=== PATIENT | male | born 1975 | race Caucasian/White ===

== ENCOUNTER 2020-03-11 00:20 | Observation (INO) | payer MEDICARE, OTHER ==
[2020-03-11] MEDS ORDERED: HYDROmorphone 1 MG/ML 1 ML SYRINGE IVP STA ×2 (01:10→02:47)
[2020-03-11] MEDS ORDERED: ONDANSETRON 4 MG/2 ML VIAL IVP STA (01:10)
[2020-03-11] MEDS: SODIUM CHLORIDE 0.9% 1,000 ML IV SCH ×3 (01:53→18:35)
[2020-03-11 02:38] LABS: Anisocytosis Slight; Basophils # (A) 0.1 k/uL (0-0.2); Basophils % (A) 1 %; Eosinophils # (A) 0.2 k/uL (0-0.7); Eosinophils % (A) 3 %; HCT 38.5 % (39.0-53.0); HGB 11.5 gm/dL (13.0-17.5); Hypochromasia Marked; Lymphocytes # (A) 1.8 k/uL (1.0-4.8); Lymphocytes % (A) 31 %; MCH 21.8 pg (25.0-35.0); MCV 72.8 fL (80.0-100.0); Mean Platelet Volume 7.3; Microcytosis Moderate; Monocytes # (A) 0.3 k/uL (0-1.0); Monocytes % (A) 6 %; Neutrophils # (A) 3.5 k/uL (1.3-7.7); Neutrophils % (A) 58 %; Platelet Count 341 k/uL (150-450); RBC 5.28 m/uL (4.30-5.90); RDW 16.8 % (11.5-15.5)
[2020-03-11] MEDS ORDERED: KETOROLAC 15 MG/ML 1 ML VIAL IVP STA (02:47)
[2020-03-11 02:52] LABS: ALT 16 U/L (4-49); AST 30 U/L (17-59); African American GFR (CKD) >90 (>60 ml/min/1.73 sqM); Albumin 3.7 g/dL (3.5-5.0); Alkaline Phosphatase 105 U/L (38-126); Anion Gap 7 mmol/L; Blood Urea Nitrogen 11 mg/dL (9-20); Calcium 9.1 mg/dL (8.4-10.2); Carbon Dioxide 26 mmol/L (22-30); Chloride 102 mmol/L (98-107); Glucose 101 mg/dL (74-99); Non-African American GFR(CKD) >90 (>60 ml/min/1.73 sqM); Potassium 3.8 mmol/L (3.5-5.1); Sodium 135 mmol/L (137-145); Total Bilirubin 0.3 mg/dL (0.2-1.3); Total Protein 6.9 g/dL (6.3-8.2)
[2020-03-11 02:59] LABS: Prothrombin Time 10.3 sec (9.0-12.0)
--- NOTE | 2020-03-11 03:07 | ED ---
Wound/Laceration HPI - General Chief Complaint: Wound/Laceration Stated Complaint: Wound care Time Seen by Provider: 03/11/20 00:43 Source: patient Mode of arrival: ambulatory - History of Present Illness Initial Comments: 44-year-old male patient presents to the emergency department today for wound evaluation. Patient has a chronic wound to the posterior scalp. Generally rece malathi care at [facility] in [place]. Patient states that approximately one year ago he had cyst removed from the right posterior scalp. Patient states that he subsequently developed MRSA infection and osteomyelitis. Patient states that he was admitted to [facility] about 1.5 months ago for sepsis r/t osteomyelitis and MRSA skin infection to his scalp. States that he was recen tly admitted to [facility] in [place], discharged last 02/29/20. He states that his infectious disease doctor is located at [facility]. He was discharged with home care. He is supposed to have a wound vac applied to the head wound, but the home nurse has been unable to get it to seal. He is receiving IV daptomycin. He comes in tonight because he believes the infection is spreading and he wants a new cryptographic center specialist and to be treated at a different hospital. He did go to [facility] this last , states they did not do anything for him. Patient states that the pain is spreading from his head, down into his shoulders and upper back. He states that his neck muscles are sore and he is having difficulty swallowing. He denies any fevers or chills. Denies nausea or vomiting. He does take oxycodone at home for pain control. Patient is very hyperverbal and seems anxious. Patient denies any recent rash, cough, shortness of breath, chest pain, abdominal pain, nausea, vomiting, diarrhea, constipation, numbness, tingling, dizziness, weakness, hematuria, dysuria, urinary urgency, urinary frequency, visual changes, or any other complaints. - Related Data Allergies Allergy/AdvReac Type Severity Reaction Status Date / Time No Known Allergies Allergy Verified 03/11/20 02:48 Review of Systems ROS Statement: Those systems with pertinent positive or pertinent negative responses have been documented in the HPI. ROS Other: All systems not noted in ROS Statement are negative. Past Medical History Past Medical History: Asthma, Hypertension History of Any Multi-Drug Resistant Organisms: MRSA Date of last positivie culture/infection: MRSA MDRO Source:: wound Past Surgical History: Hernia Repair Additional Past Surgical History / Comment(s): carpal tunnel Past Psychological History: Anxiety Smoking Status: Current every day smoker Past Alcohol Use History: None Reported Past Drug Use History: None Reported General Exam General appearance: alert, in no apparent distress, other (This is a well- developed, well-nourished adult male patient in no acute distress. Vital signs upon presentation are pulse 98, respirations 18, blood pressure 193/120, pulse ox 99% on room air.) Head exam: Present: other (There is large open wound/cavity noted to the posterior neck and scalp. There is presence of granulation tissue. No surro unding erythema. No drainage currently. ) Eye exam: Present: normal appearance, PERRL, EOMI. Absent: scleral icterus, conjunctival injection, periorbital swelling Respiratory exam: Present: normal lung sounds bilaterally. Absent: respiratory distress, wheezes, rales, rhonchi, stridor Cardiovascular Exam: Present: regular rate, normal rhythm, normal heart sounds. Absent: systolic murmur, diastolic murmur, rubs, gallop, clicks GI/Abdominal exam: Present: soft, normal bowel sounds. Absent: distended, tenderness, guarding, rebound, rigid Neurological exam: Present: alert, oriented X3, CN II-XII intact Psychiatric exam: Present: normal affect, normal mood Skin exam: Present: warm, dry, intact, normal color. Absent: rash Course Vital Signs 03/11/20 03/11/20 03/11/20 00:23 03:17 04:35 Temperature 98.1 F 97.9 F Pulse Rate 98 87 83 Respiratory 18 17 16 Rate Blood Pressure 193/120 149/106 156/118 O2 Sat by Pulse 99 99 99 Oximetry 03/11/20 05:00 Temperature Pulse Rate Respiratory 18 Rate Blood Pressure 148/111 O2 Sat by Pulse Oximetry Medical Decision Making - Medical Decision Making 44-year-old male patient presented to the emergency department today for a evalu ation of a chronic wound to the posterior scalp, he reported worsening pain to the neck and upper back. Denies fevers. He generally receives care at [facility] in [place]. Patient states that approximately one year ago he had cyst removed from the right posterior scalp. Patient states that he subsequently developed MRSA infection and osteomyelitis. Patient states that he was admitted to [facility] in [place] about 1.5 months ago for sepsis r/t osteomyelitis and MRSA skin infection to his scalp. States that he was recently admitted to [facility] in [place], discharged last . He states that his infectious disease doctor is located at [facility]. He was discharged with home care. He is supposed to have a wound vac applied to the head wound, but the home nurse has been unable to get it to seal. He is receiving IV daptomycin. I did request medical records from [facility], but have not yet received them. Labs here are unremarkable. CT was negative. The patient is unable to get his wound VAC to seal and does not have local wound care infectious disease. We'll admit for observation taken be evaluated by infectious disease and wound care. Patient is agreeable with this plan for - Lab Data Result diagrams: 03/11/20 02:18 03/11/20 02:18 Lab Results 03/11/20 03/11/20 03/11/20 Range/Units 02:18 02:18 02:18 WBC 6.0 (3.8-10.6) k/uL RBC 5.28 (4.30-5.90) m/uL Hgb 11.5 L (13.0-17.5) gm/dL Hct 38.5 L (39.0-53.0) % MCV 72.8 L (80.0-100.0) fL MCH 21.8 L (25.0-35.0) pg MCHC 30.0 L (31.0-37.0) g/dL RDW 16.8 H (11.5-15.5) % Plt Count 341 (150-450) k/uL Neutrophils % 58 % Lymphocytes % 31 % Monocytes % 6 % Eosinophils % 3 % Basophils % 1 % Neutrophils # 3.5 (1.3-7.7) k/uL Lymphocytes # 1.8 (1.0-4.8) k/uL Monocytes # 0.3 (0-1.0) k/uL Eosinophils # 0.2 (0-0.7) k/uL Basophils # 0.1 (0-0.2) k/uL Hypochromasia Marked Anisocytosis Slight Microcytosis Moderate PT 10.3 (9.0-12.0) sec INR 1.0 (<1.2) APTT 25.0 (22.0-30.0) sec Sodium (137-145) mmol/L Potassium (3.5-5.1) mmol/L Chloride (98-107) mmol/L Carbon Dioxide (22-30) mmol/L Anion Gap mmol/L BUN (9-20) mg/dL Creatinine (0.66-1.25) mg/dL Est GFR (CKD-EPI)AfAm (>60 ml/min/1.73 sqM) Est GFR (CKD-EPI)NonAf (>60 ml/min/1.73 sqM) Glucose (74-99) mg/dL Plasma Lactic Acid Lucas (0.7-2.0) mmol/L Calcium (8.4-10.2) mg/dL Total Bilirubin (0.2-1.3) mg/dL AST (17-59) U/L ALT (4-49) U/L Alkaline Phosphatase (38-126) U/L Total Protein (6.3-8.2) g/dL Albumin (3.5-5.0) g/dL Urine Color Yellow Urine Appearance Cloudy (Clear) Urine pH 6.0 (5.0-8.0) Ur Specific Crowder 1.027 (1.001-1.035) Urine Protein 2+ H (Negative) Urine Glucose (UA) Negative (Negative) Urine Ketones Trace H (Negative) Urine Blood Negative (Negative) Urine Nitrite Negative (Negative) Urine Bilirubin Negative (Negative) Urine Urobilinogen <2.0 (<2.0) mg/dL Ur Leukocyte Esterase Small H (Negative) Urine RBC 9 H (0-5) /hpf Urine WBC 6 H (0-5) /hpf Ur Squamous Epith Cells <1 (0-4) /hpf Urine Mucus Many H (None) /hpf Urine Sperm Many H (None) /hpf 03/11/20 03/11/20 Range/Units 02:18 02:18 WBC (3.8-10.6) k/uL RBC (4.30-5.90) m/uL Hgb (13.0-17.5) gm/dL Hct (39.0-53.0) % MCV (80.0-100.0) fL MCH (25.0-35.0) pg MCHC (31.0-37.0) g/dL RDW (11.5-15.5) % Plt Count (150-450) k/uL Neutrophils % % Lymphocytes % % Monocytes % % Eosinophils % % Basophils % % Neutrophils # (1.3-7.7) k/uL Lymphocytes # (1.0-4.8) k/uL Monocytes # (0-1.0) k/uL Eosinophils # (0-0.7) k/uL Basophils # (0-0.2) k/uL Hypochromasia Anisocytosis Microcytosis PT (9.0-12.0) sec INR (<1.2) APTT (22.0-30.0) sec Sodium 135 L (137-145) mmol/L Potassium 3.8 (3.5-5.1) mmol/L Chloride 102 (98-107) mmol/L Carbon Dioxide 26 (22-30) mmol/L Anion Gap 7 mmol/L BUN 11 (9-20) mg/dL Creatinine 0.72 (0.66-1.25) mg/dL Est GFR (CKD-EPI)AfAm >90 (>60 ml/min/1.73 sqM) Est GFR (CKD-EPI)NonAf >90 (>60 ml/min/1.73 sqM) Glucose 101 H (74-99) mg/dL Plasma Lactic Acid Lucas 0.6 L (0.7-2.0) mmol/L Calcium 9.1 (8.4-10.2) mg/dL Total Bilirubin 0.3 (0.2-1.3) mg/dL AST 30 (17-59) U/L ALT 16 (4-49) U/L Alkaline Phosphatase 105 (38-126) U/L Total Protein 6.9 (6.3-8.2) g/dL Albumin 3.7 (3.5-5.0) g/dL Urine Color Urine Appearance (Clear) Urine pH (5.0-8.0) Ur Specific Crowder (1.001-1.035) Urine Protein (Negative) Urine Glucose (UA) (Negative) Urine Ketones (Negative) Urine Blood (Negative) Urine Nitrite (Negative) Urine Bilirubin (Negative) Urine Urobilinogen (<2.0) mg/dL Ur Leukocyte Esterase (Negative) Urine RBC (0-5) /hpf Urine WBC (0-5) /hpf Ur Squamous Epith Cells (0-4) /hpf Urine Mucus (None) /hpf Urine Sperm (None) /hpf - Radiology Data Radiology results: report reviewed, image reviewed CT brain C-spine without contrast was obtained. Report was reviewed in its entirety. Impression by Dr. Angeles shows negative computed tomography scan of the brain. Negative computed tomography scan of the cervical spine. Disposition Clinical Impression: Scalp wound, Intractable pain Disposition: ADMITTED IP TO THIS [facility] Condition: Serious Decision to Admit Reason: Admit from EC Decision Date: 03/11/20 Decision Time: 03:53
[2020-03-11 03:34] LABS: Appearance,Urine Cloudy (Clear); Bilirubin,Urine Negative (Negative); Blood,Urine Negative (Negative); Color,Urine Yellow; Glucose,Urine (UA) Negative (Negative); Ketones,Urine Trace (Negative); Leukocyte Esterase,Urine Small (Negative); Mucus,Urine Many /hpf; Nitrite,Urine Negative (Negative); Protein,Urine 2+ (Negative); RBC,Urine 9 /hpf (0-5); Specific Gravity,Urine 1.027 (1.001-1.035); Sperm,Urine Many /hpf; Squamous Epithelial Cell,Urine <1 /hpf (0-4); Urobilinogen,Urine <2.0 mg/dL (<2.0); WBC,Urine 6 /hpf (0-5)
[2020-03-11] MEDS ORDERED: HYDROmorphone 1 MG/ML 1 ML SYRINGE IVP PRN (03:50)
[2020-03-11] MEDS ORDERED: NALOXONE 0.4 MG/ML 1 ML VIAL IV PRN (03:50)
[2020-03-11] MEDS ORDERED: cloNIDine HCL 0.1 MG TAB PO STA (04:41)
--- NOTE | 2020-03-11 04:51 | CT ---
EXAMINATION TYPE: CT brain cspine wo con DATE OF EXAM: 03/11/2020 COMPARISON: None HISTORY: Neck Pain, MRSA, Cellulitis Headache CT DLP: 1458.70 mGycm Automated exposure control for dose reduction was used. Ventricles and sulci appear normal. There is no mass effect nor midline shift. There is no sign of in tracranial hemorrhage. Calvarium is intact. Skull base is intact. There is no evidence of cerebral ed calvin. Cervical vertebra have normal alignment. Disc spaces are fairly normal. Posterior elements are intact . Prevertebral soft tissues appear normal. There is normal aeration of the mastoid sinuses. Occipital bone is intact. IMPRESSION: Negative CT scan of the brain. Negative CT scan cervical spine.
[2020-03-11] MEDS: KETOROLAC 15 MG/ML 1 ML VIAL IVP PRN ×2 (09:13→18:04)
[2020-03-11] MEDS ORDERED: ONDANSETRON 4 MG/2 ML VIAL IVP PRN (09:56)
[2020-03-11] MEDS ORDERED: rOPINIRole HCL 4 MG TABLET PO PRN (11:59)
[2020-03-11] MEDS: ALPRAZolam 1 MG TAB PO PRN ×2 (12:32→18:13)
[2020-03-11] MEDS ORDERED: HYDROmorphone 1 MG/ML 1 ML SYRINGE IVP ONE (12:34)
[2020-03-11] MEDS: HYDROmorphone 1 MG/ML 1 ML SYRINGE IVP PRN ×3 (12:36→20:47)
[2020-03-11] MEDS: OXcarbazepine 300 MG TAB PO SCH ×2 (13:09→20:39)
[2020-03-11] MEDS: VENLAFAXINE HCL ER 150 MG CAP PO SCH (13:09)
[2020-03-11] MEDS ORDERED: TEMAZEPAM 15 MG CAP PO PRN (14:19)
[2020-03-11] MEDS ORDERED: cloNIDine HCL 0.1 MG TAB PO PRN (14:19)
[2020-03-11] MEDS ORDERED: DAPTOmycin 500 MG VIAL IV SCH (14:30)
--- NOTE | 2020-03-11 14:35 | P.CONS ---
History of Present Illness - Reason for Consult Consult date: 03/11/20 Wound care - History of Present Illness This is a 44-year-old patient with a large nonhealing ulcer to the posterior neck and head. Patient states that the ulceration has been there for greater than a year. He was recently in [facility] where a wound VAC was to the area successfully. Patient was just discharged and his home care nurse was unable to apply the wound VAC. Patient has had multiple dressings including Santyl and absorptive Silver. Patient states that the absorptive silver and the area. Patient is concerned of swelling distal to the ulceration stating that this infection that needs to be removed. Patient also has a PICC line that he is receiving IV antibiotics. Through discussion with the patient he has driven from hospital to hospital including [facility], [place], and [facility] to find someone who will lanced the distal portion of the ulceration. Patient has been performing his own debridement at home to the ulceration. He states he is in chronic pain utilizing OxyContin to the site. Patient is difficult to follow during the interview interrupts conversations multiple times. He is unwilling to listen to interventions and demanding to have the wound treated how he feels that. Patient states that he lives in [place] but is willing to move here for wound care. Patient denies diabetes. Patient past medical history significant for asthma, hypertension, sepsis, MRSA, possible osteomyelitis. Patient is a current smoker Review of Systems Review Of Systems: Constitutional: No fever, no chills, no night sweats. No weight change. No weakness, fatigue or lethargy. No daytime sleepiness. Integumentary:reports wounds, no lesions. No rash or pruritus. No unusual bruising. No change in hair or nails. Past Medical History Past Medical History: Asthma, Hypertension Additional Past Medical History / Comment(s): SEPSIS, MRSA, chronic back pain History of Any Multi-Drug Resistant Organisms: MRSA Year Discovered:: MRSA MDRO Source:: wound Past Surgical History: Hernia Repair Additional Past Surgical History / Comment(s): carpal tunnel, MRSA 05/24 Past Anesthesia/Blood Transfusion Reactions: No Reported Reaction Past Psychological History: Anxiety, Bipolar Smoking Status: Current every day smoker Past Alcohol Use History: None Reported Past Drug Use History: None Reported Medications and Allergies Home Medications Medication Instructions Recorded Confirmed Type ALPRAZolam [Xanax] 2 mg PO Q8H PRN 03/11/20 03/11/20 History Carvedilol [Coreg] 12.5 mg PO BID 03/11/20 03/11/20 History Collagenase [Santyl] 1 applic TOPICAL BID 03/11/20 03/11/20 History DAPTOmycin [Cubicin] 1,000 mg IV Q24H 03/11/20 03/11/20 History Dextroamphetamine/Amphetamine 20 mg PO TID 03/11/20 03/11/20 History [Adderall] Lidocaine 5% Oint [Xylocaine 5% 1 applic TOPICAL 5XD PRN 03/11/20 03/11/20 History Oint] Mometasone Furoate [Nasonex Nasal 2 spray EA NOSTRIL BID 03/11/20 03/11/20 History Rodeo] OLANZapine ODT [ZyPREXA ZYDIS] 10 mg PO DAILY 03/11/20 03/11/20 History OXcarbazepine [Trileptal] 300 mg PO BID 03/11/20 03/11/20 History Pregabalin [Lyrica] 150 mg PO BID 03/11/20 03/11/20 History Venlafaxine HCl [Effexor XR] 300 mg PO DAILY 03/11/20 03/11/20 History oxyCODONE HCL [oxyCODONE HCL (IR)] 30 mg PO Q4H PRN 03/11/20 03/11/20 History rOPINIRole HCL [Requip] 4 mg PO BID PRN 03/11/20 03/11/20 History Allergies Allergy/AdvReac Type Severity Reaction Status Date / Time No Known Allergies Allergy Verified 03/11/20 10:44 Physical Exam Vitals: Vital Signs Temp Pulse Pulse Resp BP BP Pulse Ox 03/11/20 08:48 98.1 F 75 18 168/114 97 03/11/20 06:27 154/97 03/11/20 06:20 73 15 03/11/20 06:10 97.7 F 73 15 163/103 96 03/11/20 05:24 16 148/101 03/11/20 05:00 18 148/111 03/11/20 04:35 97.9 F 83 16 156/118 99 03/11/20 03:17 98.1 F 87 17 149/106 99 03/11/20 00:23 98 18 193/120 99 Intake and Output 03/10/20 03/11/20 03/11/20 22:59 06:59 14:59 Other: # Voids 1 Weight 113.398 kg Physical exam: General Appearance: Alert, cooperative, no distress, appears stated age. Skin: Full thickness ulceration to the posterior neck and head measuring approximately 8 x 12 x 0.4 cm significant amount of slough noted within the ulceration, minimal granulation, distal lateral aspect of the wound is edematous and firm to touch. No redness or induration noted. Patient has a moderate se trey drainage. all other Skin color, texture, tugor normal, no rashes or lesions. Neurologic: Alert oriented x3 Results CBC & Chem 7: 03/11/20 02:18 03/11/20 02:18 Labs: Abnormal Lab Results - Last 24 Hours (Table) 03/11/20 03/11/20 03/11/20 Range/Units 02:18 02:18 02:18 Hgb 11.5 L (13.0-17.5) gm/dL Hct 38.5 L (39.0-53.0) % MCV 72.8 L (80.0-100.0) fL MCH 21.8 L (25.0-35.0) pg MCHC 30.0 L (31.0-37.0) g/dL RDW 16.8 H (11.5-15.5) % Sodium 135 L (137-145) mmol/L Glucose 101 H (74-99) mg/dL Plasma Lactic Acid Lucas (0.7-2.0) mmol/L Urine Protein 2+ H (Negative) Urine Ketones Trace H (Negative) Ur Leukocyte Esterase Small H (Negative) Urine RBC 9 H (0-5) /hpf Urine WBC 6 H (0-5) /hpf Urine Mucus Many H (None) /hpf Urine Sperm Many H (None) /hpf 03/11/20 Range/Units 02:18 Hgb (13.0-17.5) gm/dL Hct (39.0-53.0) % MCV (80.0-100.0) fL MCH (25.0-35.0) pg MCHC (31.0-37.0) g/dL RDW (11.5-15.5) % Sodium (137-145) mmol/L Glucose (74-99) mg/dL Plasma Lactic Acid Lucas 0.6 L (0.7-2.0) mmol/L Urine Protein (Negative) Urine Ketones (Negative) Ur Leukocyte Esterase (Negative) Urine RBC (0-5) /hpf Urine WBC (0-5) /hpf Urine Mucus (None) /hpf Urine Sperm (None) /hpf Assessment and Plan Plan: CT of the head and surgical spine do not show osteomyelitis. Wound VAC is ordered. Discussed with patient the likelihood of the wound VAC being successful is minimal due to no significant deficits noted in the ulceration. Wound VAC at 125 mm/hg continuous suction with black foam changing Wednesday. If wound VAC is unsuccessful utilize Santyl with saline moistened gauze, dry gauze, ABDs and secured with paper tape change daily. Patient would benefit for continued wound care and possible plastic surgery consult for possible skin grafting. Thank you for the consultation any questions please contact the wound care center DNP note has been reviewed and discussed with Dr. Massey and the impression and plan of care has been directed as dictated.
--- NOTE | 2020-03-11 14:41 | P.CN ---
Psychiatric Consult - . Consult date: 03/11/20 Consult:: 03/11/20 14:31 IDENTIFYING DATA: This patient is a 44-year-old male who currently is homeless has 2 kids collects social security and is . HISTORY OF PRESENT ILLNESS: The patient presented to the hospital for wound maira luation. Patient apparently has a chronic wound on the posterior aspect of his head and neck. Patient apparently had a cyst removed 1 year ago and developed MRSA and developed lost her arthritis afterwards. Patient was recently discharged from [facility] in [place] on . Patient apparently has been to several other hospitals including [facility] in [place] which she claims did not help him. Patient claimed to ER staff that his pain in his head has been spreading and appeared to be anxious and hyperverbal and psychiatry is consulted for "ADHD". Patient was seen at the bedside today and was directable and agreeable to speak to contract technical writer. Patient was calm and cooperative however was tangential. Patient has several questions about his medications and spoke significantly about his wound and the pain that is causing him. He claims that he supposed to be on a wound VAC however has not had this for some reason. He claims that he has been on his current medication regimen of psychiatric medications for several years and does not want his medications changed. He states that he does have a psychiatrist that he follows up in [place]. He claims that his mood is "terrible" and claims it is mainly related to his pain. He states that he has poor family support and resources. He states that he has gone to several places to seek help. He claims that his sleep has been poor lately due to the pain. He states his appetite is fair. At this time patient denies any suicidal or homical ideations, intent or plan. Patient denies any auditory, visual hallucinations and denies any paranoia or delusions. Patients admits to using marijuana occasionally and cigarettes daily. PAST PSYCHIATRIC HISTORY: Patient has a a history of anxiety, depression and ADHD.. Patient is on several different medications for psychiatric reasons including Adderall, Xanax, Effexor, Trileptal, Zyprexa he states that his last mental health admission was 7 years ago in [place] and states that he was admitted twice in the past. He claims that he has a psychiatrist "Geraldine" who works in [employer] who is getting his medications from. Patient denies any history of suicide attempts in the past. PAST MEDICAL HISTORY: Asthma, hypertension, carpal tunnel, chronic neck/head wound.. ALLERGIES: as per EMR. CHEMICAL DEPENDENCY HISTORY: as per HPI. FAMILY PSYCHIATRIC/SUBSTANCE USE HISTORY: Mother has bipolar disorder SOCIAL HISTORY: Patient was born and raised in [place]. He states that he completed his GED and has worked several odd jobs in the past. He states he has 2 kids is currently homeless at this time is and is collecting Social Security disability. MENTAL STATUS EXAM: General Appearance: Patient appears to be stated age is alert, pleasant, and cooperative, talkative. Patient appears to have fair hygiene and grooming wearing hospital gown with fair eye contact. Has a significant neck/head wound. Behavior: Patient is calmly lying in bed without any agitated behavior. Speech: Patient's speech is fluent and nonpressured. Mood/Affect: Patient reports their mood is "terrible", affect is congruent Suicidality/Homicidality: Patient denies having any suicidal or homicidal ideation intent or plan. Perceptions: Patient denies any visual hallucinations and denies any auditory hallucinations Though content/process: There is no evidence of any delusional thought content and thought process is linear and goal-directed. Preoccupied with needing resources and assistance along with his pain and medical conditions. Memory and concentration: AOX3, grossly intact for the purposes of this session. Can spell "WORLD" backwards Judgment and insight: Fair IMPRESSIONS: Bipolar disorder unspecified Pain disorder with related psychological factors. PLAN: -At this time patient DOES NOT meet criteria for inpatient psychiatric admission. -Would recommend the following medication changes/additions: Patient can continue on current psychiatric medications as prescribed. Patient does not want these adjusted and at this point there is no need to adjust the medications. -Continue with medical treatment and wound care to help relieve pain and this was in turn help patient's mood and irritability. -Patient will need significant assistance with resources and assistance from social work/case management due to his scalp wound and assistance with care. Patient is currently homeless and will need help with placement. -Check UDS -Patient will also need to be set up with an outpatient mental health/psychiatry appointment locally if he is to stay in the area. -Psychiatry will sign off at this point, please contact with any questions.
--- NOTE | 2020-03-11 15:37 | HP ---
HISTORY AND PHYSICAL DATE OF SERVICE: 03/11/2020 CHIEF COMPLAINT: 1. Scalp wound with severe pain. 2. Intractable pain. HISTORY OF PRESENT ILLNESS: This 44-year-old gentleman with a past medical history of multiple medical problems including asthma, hypertension, history of MRSA, history of chronic back pain, anxiety, bipolar, was being followed by primary physician. Patient apparently lives in [facility]. The patient apparently had a cyst surgery and subsequently developed a significant wound infection of the back of the neck, which was being managed by [facility]. The patient was recently noted to have osteomyelitis versus MRSA. The patient was started on IV antibiotics through a Port-A-Cath. The patient also apparently went to [facility] also, but the current problems began when the patient had significant pain and swelling. The patient reports that the wound was draining significant amount of purulent material and was giving some relief to him, but apparently the nurse could not apply the wound VAC and the patient had significant pain around the neck and some swelling. The patient came to [facility] for further evaluation and treatment. The white count is 6, hemoglobin 11.5. Cultures are pending at this time. There is no history of fevers or rigors. No headache, loss of consciousness or seizures at this time. PAST MEDICAL HISTORY: History asthma, hypertension, sepsis, MRSA, significant wound. MEDICATIONS: Daptomycin, oxycodone, Zyprexa, xylocaine, Trileptal, collagenase, Requip, Effexor XR, Lyrica, Nasonex, Coreg, Adderall and Xanax. ALLERGIES: None. FAMILY HISTORY: No history of heart disease or strokes in the family. SOCIAL HISTORY: History of smoking on a regular basis. No history alcohol intake. REVIEW OF SYSTEMS: ENT mentioned earlier. CARDIOVASCULAR: No angina or palpitations. RESPIRATORY: No cough or hemoptysis. GI: No nausea. : As mentioned earlier. SENIOR ENERGY CONSULTANT: No numbness or weakness. ALLERGY/IMMUNOLOGY: None. MUSCULOSKELETAL: As mentioned earlier. IMMUNOLOGY/HEMATOLOGY: Negative. ENDOCRINE: No history of diabetes or hypothyroidism. CONSTITUTIONAL: As mentioned earlier. DERMATOLOGY: Negative. PHYSICAL EXAM: GENERAL: Alert, oriented x3. VITAL SIGNS: Pulse 75, blood pressure 168/114, respirations 18, temperature 98.1, pulse ox 97% on room air. HEENT: Conjunctivae normal. NECK: No JVD. CARDIOVASCULAR: S1 and S2 muffled. LUNGS: Respirations diminished at the bases. A few scattered rhonchi and crackles. ABDOMEN: Soft, nontender. No mass palpable. LEGS: No edema. NERVOUS SYSTEM: Higher functions as mentioned. Moves all limbs equally. LYMPHATICS: No lymph nodes palpable in the neck, axillae or groin. SKIN: No ulcer. JOINTS: No active deforming arthropathy. SKULL: Significant wound infection with erythematous base with some swelling in the neck area and severe tenderness. . SKIN: As mentioned. LABS: WBC 6.5, hemoglobin 11.4 sodium 135. ASSESSMENT: 1. Acute on chronic scalp wound with severe pain. 2. Rule out superinfection. 3. History of recent MRSA versus osteomyelitis. 4. Anemia microcytic possibly anemia of chronic disease. 5. Hyponatremia. 6. History of asthma. 7. History of hypertension. 8. History of MRSA. 9. History of chronic back pain. 10.History of sepsis. 11.History of anxiety bipolar. 12.History of nicotine dependence, continued and ongoing. 13.Obesity. 14.Full code. RECOMMENDATIONS: This 44-year-old gentleman who presented with multiple complex medical issues, we will monitor the patient closely, continue the current management and symptomatic treatment. I recommend reinitiate daptomycin. Obtain cultures. I would also recommend a bone scan. Obtain old records. The patient apparently has been at [facility] also recently. Recommend infectious disease evaluation and wound care management also. The overall prognosis is extremely guarded because of multiple complex medical issues. Patient did have a head and cervical spine CAT scan which were negative. Once again, the prognosis guarded. Symptomatic treatment will be provided. DVT prophylaxis. Guarded prognosis because of multiple complex medical issues. Further recommendations to follow. MMODL / IJN: [id number] /
[2020-03-11] MEDS: OLANZapine ODT 10 MG TAB PO SCH ×2 (15:57→20:40)
[2020-03-11] MEDS: cloNIDine HCL 0.1 MG TAB PO SCH ×2 (15:59→21:13)
[2020-03-11] MEDS: NICOTINE 14MG/24HR PATCH TRANSDERM SCH (15:59)
[2020-03-11] MEDS: NON FORMULARY DRUG (Dextroamphetamine/Amphetamine [Adderall] 20 MG) PO SCH ×2 (18:07→21:23)
[2020-03-11] MEDS: PREGABALIN 75 MG CAP PO SCH (20:32)
[2020-03-11] MEDS: HEPARIN SODIUM,PORCINE 5,000 UNIT/ML 1 ML VIAL SQ SCH (20:33)
[2020-03-11] MEDS: carvediloL 12.5 MG TAB PO SCH (20:33)
[2020-03-11] MEDS: FLUTICASONE 50MCG/SPRAY NASAL 16GM EA NOSTRIL SCH (20:34)
[2020-03-11] MEDS: COLLAGENASE 250 UNIT/GM OINTMENT 30 GM TUBE TOPICAL SCH (20:34)
[2020-03-11] MEDS ORDERED: COLLAGENASE 250 UNIT/GM OINTMENT 30 GM TUBE TOPICAL SCH (21:00)
--- NOTE | 2020-03-11 22:49 | P.CONS ---
History of Present Illness - Reason for Consult Consult date: 03/11/20 Wound to the scalp and MRSA infection Requesting physician: Ole Marlow - Chief Complaint Nonhealing wound to the posterior neck area and pain x months - History of Present Illness Patient is a 44-year-old male with a past medical history significant for MRSA infection of the posterior neck area for the patient did have surgical debridement subsequently recurrence of MRSA infection and further debridement has been done with leading to large wound on the posterior neck area the patient has for almost a year now, patient has been going from one hospital to another hospital and has been treated [facility] as well as [facility], and the patient started running physician who lives the area surrounding his wound as he thinks it is full of infection patient been complaining of pain to the lateral border. 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 a wound VAC subsequently he showed up at the [facility] patient has been admitted to the hospital wound care is keep has been consulted for local wound care patient was started on daptomycin and infection disease was consulted for further management of antibiotic therapy, patient did have CT of the brain as well as cervical spine area did not show any bony changes suspicious for osteomyelitis patient did have a normal white count and no fever recorded during this admission Review of Systems Positive point has been mentioned in the HPI rest of the systems are negative Past Medical History Past Medical History: Asthma, Hypertension Additional Past Medical History / Comment(s): SEPSIS, MRSA, chronic back pain History of Any Multi-Drug Resistant Organisms: MRSA Year Discovered:: MRSA MDRO Source:: wound Past Surgical History: Hernia Repair Additional Past Surgical History / Comment(s): carpal tunnel, MRSA 05/24 Past Anesthesia/Blood Transfusion Reactions: No Reported Reaction Past Psychological History: Anxiety, Bipolar Smoking Status: Current every day smoker Past Alcohol Use History: None Reported Past Drug Use History: None Reported Medications and Allergies Home Medications Medication Instructions Recorded Confirmed Type ALPRAZolam [Xanax] 2 mg PO Q8H PRN 03/11/20 03/11/20 History Carvedilol [Coreg] 12.5 mg PO BID 03/11/20 03/11/20 History Collagenase [Santyl] 1 applic TOPICAL BID 03/11/20 03/11/20 History DAPTOmycin [Cubicin] 1,000 mg IV Q24H 03/11/20 03/11/20 History Dextroamphetamine/Amphetamine 20 mg PO TID 03/11/20 03/11/20 History [Adderall] Lidocaine 5% Oint [Xylocaine 5% 1 applic TOPICAL 5XD PRN 03/11/20 03/11/20 History Oint] Mometasone Furoate [Nasonex Nasal 2 spray EA NOSTRIL BID 03/11/20 03/11/20 History [place]] OLANZapine ODT [ZyPREXA ZYDIS] 10 mg PO DAILY 03/11/20 03/11/20 History OXcarbazepine [Trileptal] 300 mg PO BID 03/11/20 03/11/20 History Pregabalin [Lyrica] 150 mg PO BID 03/11/20 03/11/20 History Venlafaxine HCl [Effexor XR] 300 mg PO DAILY 03/11/20 03/11/20 History oxyCODONE HCL [oxyCODONE HCL (IR)] 30 mg PO Q4H PRN 03/11/20 03/11/20 History rOPINIRole HCL [Requip] 4 mg PO BID PRN 03/11/20 03/11/20 History Allergies Allergy/AdvReac Type Severity Reaction Status Date / Time No Known Allergies Allergy Verified 03/11/20 10:44 Physical Exam Vitals: Vital Signs Temp Pulse Pulse Resp BP BP Pulse Ox 03/11/20 15:00 97.5 F L 72 17 158/103 100 03/11/20 08:48 98.1 F 75 18 168/114 97 03/11/20 06:27 154/97 03/11/20 06:20 73 15 03/11/20 06:10 97.7 F 73 15 163/103 96 03/11/20 05:24 16 148/101 03/11/20 05:00 18 148/111 03/11/20 04:35 97.9 F 83 16 156/118 99 03/11/20 03:17 98.1 F 87 17 149/106 99 03/11/20 00:23 98 18 193/120 99 Intake and Output 0903/11/20 03/11/20 06:59 14:59 22:59 Intake Total 100 Balance 100 Intake: Other 100 Other: # Voids 1 2 Weight 113.398 kg GENERAL DESCRIPTION: Middle-aged male up in the room, no distress. No tachypnea or accessory muscle of respiration use. HEENT: Shows Pallor , no scleral icterus. Oral mucous membrane is dry. No pharyngeal erythema or thrush NECK: Trachea central, no thyromegaly. Posterior neck did have a large wound wound base looks clean with no slough tissue. No surrounding swelling redness and induration or any foul-smelling drainage LUNGS: Unlabored breathing. Clear to auscultation anteriorly. No wheeze or crackle. HEART: S1, S2, regular rate and rhythm. No loud murmur ABDOMEN: Soft, no tenderness , guarding or rigidity, no organomegaly EXTREMITIES: No edema of feet. SKIN: No rash, no masses palpable. NEUROLOGICAL: The patient is awake, alert, oriented x3, mood and affect normal. Results CBC & Chem 7: 03/11/20 02:18 03/11/20 02:18 Labs: Abnormal Lab Results - Last 24 Hours (Table) 03/11/20 03/11/20 03/11/20 Range/Units 02:18 02:18 02:18 Hgb 11.5 L (13.0-17.5) gm/dL Hct 38.5 L (39.0-53.0) % MCV 72.8 L (80.0-100.0) fL MCH 21.8 L (25.0-35.0) pg MCHC 30.0 L (31.0-37.0) g/dL RDW 16.8 H (11.5-15.5) % Sodium 135 L (137-145) mmol/L Glucose 101 H (74-99) mg/dL Plasma Lactic Acid Lucas (0.7-2.0) mmol/L Urine Protein 2+ H (Negative) Urine Ketones Trace H (Negative) Ur Leukocyte Esterase Small H (Negative) Urine RBC 9 H (0-5) /hpf Urine WBC 6 H (0-5) /hpf Urine Mucus Many H (None) /hpf Urine Sperm Many H (None) /hpf 03/11/20 Range/Units 02:18 Hgb (13.0-17.5) gm/dL Hct (39.0-53.0) % MCV (80.0-100.0) fL MCH (25.0-35.0) pg MCHC (31.0-37.0) g/dL RDW (11.5-15.5) % Sodium (137-145) mmol/L Glucose (74-99) mg/dL Plasma Lactic Acid Lucas 0.6 L (0.7-2.0) mmol/L Urine Protein (Negative) Urine Ketones (Negative) Ur Leukocyte Esterase (Negative) Urine RBC (0-5) /hpf Urine WBC (0-5) /hpf Urine Mucus (None) /hpf Urine Sperm (None) /hpf Assessment and Plan Assessment: 1- patient with a chronic nonhealing wound to the posterior neck area that apparently has been there for almost a year patient mentioning he did have episodes of MRSA skin and soft tissue infection as well as osteomyelitis and is currently getting vancomycin the outpatient setting, patient on admission Hospital is afebrile his white counts are normal CT of the cervical area did not show any bony changes to suspicious for osteomyelitis (1) MRSA infection Current Visit: Yes Status: Acute Code(s): A49.02 - METHICILLIN RESIS STAPH INFECTION, UNSP SITE SNOMED Code(s): 980949346 (2) Scalp wound Current Visit: Yes Status: Acute Code(s): S01.00XA - UNSPECIFIED OPEN WOUND OF SCALP, INITIAL ENCOUNTER SNOMED Code(s): 653278958 Plan: 1- we will try to get records from his previous hospital admission to get more information about his condition as well as culture 2-patient has been started on daptomycin however those symptoms to cut back to 6mg per KG clinically not behaving as an osteomyelitis or even cellulitis at this point 3-local wound care to the wound VAC, black foam continuous pressure 125 mm medicated which is Wednesday wound care team is already on the case We will follow on clinical condition and cultures to further adjust medication if needed Thank you for this consultation will follow this patient with you
[2020-03-12] MEDS: SODIUM CHLORIDE 0.9% 1,000 ML IV SCH ×2 (02:31→08:02)
[2020-03-12 06:20] LABS: Anisocytosis Slight; Basophils # (A) 0.1 k/uL (0-0.2); Basophils % (A) 1 %; Eosinophils # (A) 0.2 k/uL (0-0.7); Eosinophils % (A) 5 %; HCT 35.2 % (39.0-53.0); HGB 10.5 gm/dL (13.0-17.5); Hypochromasia Marked; Lymphocytes # (A) 1.4 k/uL (1.0-4.8); Lymphocytes % (A) 34 %; MCV 73.4 fL (80.0-100.0); Mean Platelet Volume 7.6; Microcytosis Moderate; Monocytes # (A) 0.3 k/uL (0-1.0); Monocytes % (A) 8 %; Neutrophils # (A) 1.9 k/uL (1.3-7.7); Neutrophils % (A) 47 %; Platelet Count 271 k/uL (150-450); RBC 4.79 m/uL (4.30-5.90); RDW 17.3 % (11.5-15.5); WBC 4.1 k/uL (3.8-10.6)
[2020-03-12 06:51] LABS: African American GFR (CKD) >90 (>60 ml/min/1.73 sqM); Anion Gap 5 mmol/L; Blood Urea Nitrogen 16 mg/dL (9-20); C Reactive Protein 18.3 mg/L (<10.0); Calcium 8.7 mg/dL (8.4-10.2); Carbon Dioxide 27 mmol/L (22-30); Chloride 105 mmol/L (98-107); Glucose 88 mg/dL (74-99); Non-African American GFR(CKD) >90 (>60 ml/min/1.73 sqM); Potassium 4.1 mmol/L (3.5-5.1); Sodium 137 mmol/L (137-145)
[2020-03-12 07:46] LABS: Amphetamine Screen,Urine Detected (NotDetected); Barbiturate Screen,Urine Not Detected (NotDetected); Benzodiazepines Screen,Urine Detected (NotDetected); Cocaine Screen,Urine Not Detected (NotDetected); Methadone Screen, Urine Not Detected (NotDetected); Opiate Screen,Urine Detected (NotDetected); Oxycodone Screen, Urine Detected (NotDetected); Phencyclidine Screen,Urine Not Detected (NotDetected); Tricyclic Antidepressant,Urine Not Detected (NotDetected); Urn Cannabinoid Scrn Detected (NotDetected)
[2020-03-12] MEDS: cloNIDine HCL 0.1 MG TAB PO SCH (07:49)
[2020-03-12] MEDS: PREGABALIN 75 MG CAP PO SCH (07:49)
[2020-03-12] MEDS: carvediloL 12.5 MG TAB PO SCH (07:49)
[2020-03-12] MEDS: HYDROmorphone 1 MG/ML 1 ML SYRINGE IVP PRN ×2 (07:49→11:51)
[2020-03-12] MEDS: NICOTINE 14MG/24HR PATCH TRANSDERM SCH (07:49)
[2020-03-12] MEDS: PANTOPRAZOLE 40 MG TABLET PO SCH ×2 (07:49→07:50)
[2020-03-12] MEDS: HEPARIN SODIUM,PORCINE 5,000 UNIT/ML 1 ML VIAL SQ SCH (07:50)
[2020-03-12] MEDS: COLLAGENASE 250 UNIT/GM OINTMENT 30 GM TUBE TOPICAL SCH (08:00)
[2020-03-12] MEDS: VENLAFAXINE HCL ER 150 MG CAP PO SCH (08:00)
[2020-03-12] MEDS: NON FORMULARY DRUG (Dextroamphetamine/Amphetamine [Adderall] 20 MG) PO SCH (08:01)
[2020-03-12] MEDS: OXcarbazepine 300 MG TAB PO SCH (08:01)
[2020-03-12] MEDS: FLUTICASONE 50MCG/SPRAY NASAL 16GM EA NOSTRIL SCH (08:02)
[2020-03-12 08:05] VITALS: BP 170/107; PULSE 98; RESP 16; TEMP 97.9
[2020-03-12 09:20] LABS: Erythrocyte Sedimentation Rate 15 mm/hr (0-15)
[2020-03-12] MEDS: ALPRAZolam 1 MG TAB PO PRN (11:51)
--- NOTE | 2020-03-12 14:21 | P.DS ---
Providers Date of admission: 03/11/20 04:12 Attending physician: Ole Marlow Consults: 03/11/20 03:51 Consult Physician Routine Consulting Provider: Prakash Zhu Consult Reason/Comments: Wound to scalp Do you want consulting provider notified?: Yes 03/11/20 12:14 Consult Physician Routine Consulting Provider: Drake Espinoza Consult Reason/Comments: adhd Do you want consulting provider notified?: Yes Primary care physician: [facility] Course: 44-year-old male was admitted secondary to posterior neck wound no evidence of active abscess at this time. It. Patient is being followed by an infectious disease physician in [place] and patient has been on daptomycin. Patient has a big wound for which a wound VAC was ordered but unfortunately his wound care nurse was unable to up to the wound VAC. Patient had a bone scan results of which are pending although possibly of osteomyelitis is low. Infectious disease evaluate the patient here patient will need wound care and patient will follow with infectious disease physician in [place] [facility] who will decide about further continuation of antibiotics. Patient is requesting for opiates including Opana, will run maps and I declined to give any additional opiate medications as he says he still has some of the pain medications. Patient will need to see his PCP or a interior painter. Although did give prescription of etodolac for few days. Patient apparently had surgery in the back of her sister an abscess which led to an wound which was nonhealing and does have an appointment today with a plastic surgeon in [place]. PHYSICAL EXAMINATION: GENERAL: The patient is alert and oriented x3, not in any acute distress. Well developed, well nourished. HEENT: Pupils are round and equally reacting to light. EOMI. No scleral icterus. No conjunctival pallor. Normocephalic, atraumatic. No pharyngeal erythema. No thyromegaly. CARDIOVASCULAR: S1 and S2 present. No murmurs, rubs, or gallops. PULMONARY: Chest is clear to auscultation, no wheezing or crackles. ABDOMEN: Soft, nontender, nondistended, normoactive bowel sounds. No palpable organomegaly. MUSCULOSKELETAL: No joint swelling or deformity. EXTREMITIES: No cyanosis, clubbing, or pedal edema. NEUROLOGICAL: Gross neurological examination did not reveal any focal deficits. SKIN: A big posterior neck wound extending up to the upper part of the back, doesn't appear to be infected. The rest of the medical problems and hospitalization course please refer to the history and physical exam from Dr. Marlow Patient Condition at Discharge: Serious Plan - Discharge Summary Discharge Rx Participant: Yes New Discharge Prescriptions: New Etodolac [Lodine XR] 500 mg PO DAILY #7 tab Continue OLANZapine ODT [ZyPREXA Zydis] 10 mg PO DAILY Lidocaine 5% Oint [Xylocaine 5% Oint] 1 applic TOPICAL 5XD PRN PRN Reason: HEAD AND NECK DAPTOmycin [Cubicin] 1,000 mg IV Q24H OXcarbazepine [Trileptal] 300 mg PO BID Collagenase [Santyl] 1 applic TOPICAL BID rOPINIRole HCL [Requip] 4 mg PO BID PRN PRN Reason: RESTLESS LEGS Venlafaxine HCl [Effexor XR] 300 mg PO DAILY Pregabalin [Lyrica] 150 mg PO BID Mometasone Furoate [Nasonex Nasal [place]] 2 spray EA NOSTRIL BID Carvedilol [Coreg] 12.5 mg PO BID Dextroamphetamine/Amphetamine [Adderall] 20 mg PO TID ALPRAZolam [Xanax] 2 mg PO Q8H PRN PRN Reason: Anxiety oxyCODONE HCL [oxyCODONE HCL (IR)] 30 mg PO Q4H PRN PRN Reason: Pain Discharge Medication List ALPRAZolam [Xanax] 2 mg PO Q8H PRN 03/11/20 [History] Carvedilol [Coreg] 12.5 mg PO BID 03/11/20 [History] Collagenase [Santyl] 1 applic TOPICAL BID 03/11/20 [History] DAPTOmycin [Cubicin] 1,000 mg IV Q24H 03/11/20 [History] Dextroamphetamine/Amphetamine [Adderall] 20 mg PO TID 03/11/20 [History] Lidocaine 5% Oint [Xylocaine 5% Oint] 1 applic TOPICAL 5XD PRN 03/11/20 [History] Mometasone Furoate [Nasonex Nasal [place]] 2 spray EA NOSTRIL BID 03/11/20 [History] OLANZapine ODT [ZyPREXA Zydis] 10 mg PO DAILY 03/11/20 [History] OXcarbazepine [Trileptal] 300 mg PO BID 03/11/20 [History] Pregabalin [Lyrica] 150 mg PO BID 03/11/20 [History] Venlafaxine HCl [Effexor XR] 300 mg PO DAILY 03/11/20 [History] oxyCODONE HCL [oxyCODONE HCL (IR)] 30 mg PO Q4H PRN 03/11/20 [History] rOPINIRole HCL [Requip] 4 mg PO BID PRN 03/11/20 [History] Etodolac [Lodine XR] 500 mg PO DAILY #7 tab 03/12/20 [Rx] Follow up Appointment(s)/Referral(s): Mickey Car DO [Primary Care Provider] - 3 Days Ezio Albert MD [REFERRING] - 1 Week Patient Instructions/Handouts: Chronic Wound Care (DC), Wound Healing and Your Diet (DC) Activity/Diet/Wound Care/Special Instructions: Follow up with Primary Infectious Disease Doctor. Discharge Disposition: HOME SELF-CARE
--- NOTE | 2020-03-12 15:49 | PN ---
PROGRESS NOTE DATE OF SERVICE: 03/12/2020 REASON FOR FOLLOWUP: Large neck and scalp wound with MRSA infection. INTERVAL HISTORY: Patient is currently afebrile. Overall the patient is feeling better. The patient's pain is currently controlled. Denies having any chest pain or cough. No nausea, no vomiting, no abdominal pain or diarrhea. PHYSICAL EXAMINATION: Blood pressure 172/100 with a pulse of 90, temperature 97.9, he is 97% on room air. General description is an middle-aged male, up in the bed in no distress. Examination of the posterior neck shows a large wound with good granulation tissue. No surrounding swelling, redness. LUNGS: Unlabored breathing, clear to auscultation. HEART: S1, S2. Regular rate and rhythm. ABDOMEN: Soft, no tenderness. LABS: Hemoglobin 7.5, white count 4.1, sedimentation rate is 15, CRP is only 18.3, creatinine 0.81. Urine drug screen is positive for opiates, oxycodone, amphetamines, benzo and marijuana. Blood culture has been negative so far. Wound culture pending. Bone scan is pending. DIAGNOSTIC IMPRESSION AND PLAN: Patient with a large wound to the posterior neck area with presumed previous infection of MRSA. Patient came to the hospital as wound home care nurse was unable to apply the wound VAC on give him his antibiotic through his port. At this time we do not have any evidence of bacteremia. The patient is afebrile. His sed rate is normal. The patient has been instructed to continue with daptomycin as per instruction of his ID physician in [place] and to follow up with him this week to determine need for any further antibiotic therapy. However, overall the wound does not look infected to me. Clinically, the patient has no fever, no white count and sedimentation rate is normal. Local care should be with wound VAC. MMODL / IJN: [id number] /
--- NOTE | 2020-03-12 17:15 | NM ---
EXAMINATION TYPE: NM bone 3 phase DATE OF EXAM: 03/12/2020 COMPARISON: NONE HISTORY: Rule out osteomyelitis, MRSA, neck pain, cellulitis Triple phase bone scintigraphy was performed following the injection of 22.2 mCi Tc 99m MDP. Blood fl ow and blood pool imaging was performed. The delayed static images cannot be performed, the patient w as discharged prior to completion of this exam. This exam is limited to the 2 sequences obtained. FINDINGS: Blood flow: There is a left-sided injection. Radiotracer distribution on the blood flow appears meseret l. No suspicious focal hot accumulation is evident. Blood Pool: Radiotracer distribution appears symmetrical. No focal increase radiotracer accumulation is identified. Static images: Not obtained. Static images would not change the impression to osteomyelitis. However , Bone lesions cannot be excluded in the absence of the complete exam. IMPRESSION: 1. Exam is limited, the patient was discharged prior to completion of the third phase of the examinat ion. 2. Based on the blood flow and blood pool images, no suspicious focal radiotracer accumulation is ev ntified to suggest nuclear medicine detectable infection.
== END 2020-03-12 14:20 | disposition home or self-care (01) ==
LOC: SUPCPDRO 00:20 → EC 00:20 → 1SOBS 04:12
PROVIDERS: ADMIT Hospitalist; ATTEND Hospitalist
DX: L98.492 Non-pressure chronic ulcer of skin of other sites with fat layer exposed (principal); G89.29 Other chronic pain; B95.62 Methicillin resistant Staphylococcus aureus infection as the cause of diseases classified elsewhere; J45.909 Unspecified asthma, uncomplicated; I10 Essential (primary) hypertension; F31.9 Bipolar disorder, unspecified; D50.9 Iron deficiency anemia, unspecified; E87.1 Hypo-osmolality and hyponatremia; E66.9 Obesity, unspecified; F17.200 Nicotine dependence, unspecified, uncomplicated; Z79.899 Other long term (current) drug therapy; Z68.33 Body mass index [BMI] 33.0-33.9, adult
CPT/HCPCS: 96361 ×3; 96365; 96372 ×2; 96376 ×3; 96375; 99284; 36415; 80053; 80048; 85652; 83605; 85025 ×2; 85610; 85730; 86140; 81001; 87040; 80306; 87070; 87205; 72125; 70450; 78315; G0378 ×2; A9503; S4990; J1644 ×2; J2405; J0878; J1170 ×2; J1885

== ENCOUNTER 2020-03-13 01:56 | Emergency (ER) | payer MEDICARE, OTHER ==
[2020-03-13 02:05] VITALS: RESP 18; TEMP 98.2
--- NOTE | 2020-03-13 02:41 | ED ---
General Adult HPI - General Chief complaint: Recheck/Abnormal Lab/Rx Stated complaint: Back of neck injury Time Seen by Provider: 03/13/20 02:20 Source: patient Mode of arrival: ambulatory Limitations: no limitations - History of Present Illness Initial comments: Zachery is a 44-year-old male with an extensive medical history most significant for chronic wound on the posterior scalp, as well as multiple psychiatric illnesses. Patient reports that this wound is been present for nearly a year after her procedure that he had resulting infection. Patient has followed at multiple hospitals including [facility] in [facility] is [facility] our hospital. Patient was discharged home, his home health care nurse came by the house today but stated that because there are scabs over his port she cannot axis and would not give his antibiotics. This prompted the patient to return to the ER. - Related Data Home Medications Medication Instructions Recorded Confirmed ALPRAZolam [Xanax] 2 mg PO Q8H PRN 03/11/20 03/11/20 Carvedilol [Coreg] 12.5 mg PO BID 03/11/20 03/11/20 Collagenase [Santyl] 1 applic TOPICAL BID 03/11/20 03/11/20 DAPTOmycin [Cubicin] 1,000 mg IV Q24H 03/11/20 03/11/20 Dextroamphetamine/Amphetamine 20 mg PO TID 03/11/20 03/11/20 [Adderall] Lidocaine 5% Oint [Xylocaine 5% 1 applic TOPICAL 5XD PRN 03/11/20 03/11/20 Oint] Mometasone Furoate [Nasonex Nasal 2 spray EA NOSTRIL BID 03/11/20 03/11/20 [place]] OLANZapine ODT [ZyPREXA Zydis] 10 mg PO DAILY 03/11/20 03/11/20 OXcarbazepine [Trileptal] 300 mg PO BID 03/11/20 03/11/20 Pregabalin [Lyrica] 150 mg PO BID 03/11/20 03/11/20 Venlafaxine HCl [Effexor XR] 300 mg PO DAILY 03/11/20 03/11/20 oxyCODONE HCL [oxyCODONE HCL (IR)] 30 mg PO Q4H PRN 03/11/20 03/11/20 rOPINIRole HCL [Requip] 4 mg PO BID PRN 03/11/20 03/11/20 Previous Rx's Medication Instructions Recorded Etodolac [Lodine XR] 500 mg PO DAILY #7 tab 03/12/20 Allergies Allergy/AdvReac Type Severity Reaction Status Date / Time haloperidol [From Haldol] AdvReac Unknown Verified 03/13/20 02:05 Review of Systems ROS Statement: Those systems with pertinent positive or pertinent negative responses have been documented in the HPI. ROS Other: All systems not noted in ROS Statement are negative. Past Medical History Past Medical History: Asthma, Hypertension Additional Past Medical History / Comment(s): SEPSIS, MRSA, chronic back pain History of Any Multi-Drug Resistant Organisms: MRSA Date of last positivie culture/infection: MRSA MDRO Source:: wound Past Surgical History: Hernia Repair Additional Past Surgical History / Comment(s): carpal tunnel, MRSA 05/24 Past Anesthesia/Blood Transfusion Reactions: No Reported Reaction Past Psychological History: Anxiety, Bipolar Smoking Status: Current every day smoker Past Alcohol Use History: None Reported Past Drug Use History: None Reported General Exam - General Exam Comments Initial Comments: Physical Exam GENERAL: Patient is well-developed and well-nourished. Patient is nontoxic and well-hydrated and is in no distress. HENT: Chronic wound on posterior scalp and neck, granulation tissue present, no signs of acute infection EYES: PERRL, EOMI PULMONARY: Unlabored respirations. CARDIOVASCULAR: RRR Warm and well perfused extremities ABDOMEN: Non-distended SKIN: No rashes or bruising : Deferred NEUROLOGIC: Alert and oriented Normal speech Normal gait MUSCULOSKELETAL: Moving all extremities with no apparent injury PSYCHIATRIC: No SI/HI Limitations: no limitations Course Vital Signs 03/13/20 02:02 Temperature 98.2 F Pulse Rate 85 Respiratory 18 Rate Blood Pressure 169/112 O2 Sat by Pulse 99 Oximetry Medical Decision Making - Medical Decision Making Patient was seen and evaluated history is obtained from the patient History and physical exam revealed no acute complaints aside from patient's inability to get his antibiotics due to inability to access his port. Dose of antibiotics and pain medications will be given in the ER. Patient is scheduled to follow up outpatient tomorrow with his infectious disease doctor, at this point I'm not certain the patient still requires daptomycin recommended that he follow up with his infectious disease doctor to find out if he still needs the medication as the wound appears quite well-healed and his bone scan is negative for signs of osteomyelitis. Patient does need a wound VAC and has outpatient wound care set up. Patient requesting prescription for narcotic pain medication upon discharge. I advised the patient I will not prescribe these medications, he is to establish care with a primary care pain management doctor for his chronic pain. Disposition Clinical Impression: Scalp wound, Intractable pain Disposition: HOME SELF-CARE Condition: Stable Additional Instructions: You need to follow up with your infectious disease and wound care doctor for additional prescriptions for Daptomycin Go to your scheduled appointment today Is patient prescribed a controlled substance at d/c from ED?: No Referrals: Mickey Car DO [Primary Care Provider] - 1-2 days
[2020-03-13] MEDS ORDERED: MORPHINE SULFATE 4 MG/ML SYRINGE IVP STA (02:43)
[2020-03-13] MEDS ORDERED: ONDANSETRON 4 MG/2 ML VIAL IVP STA (03:04)
[2020-03-13] MEDS ORDERED: ONDANSETRON 4 MG ODT STARTER PACK 2 TAB BTL PO STA (04:37)
[2020-03-13] MEDS ORDERED: KETOROLAC 15 MG/ML 1 ML VIAL IVP STA (04:37)
[2020-03-13 05:14] VITALS: BP 167/98; PULSE 98
== END 2020-03-13 05:00 | disposition home or self-care (01) ==
LOC: EC 01:56
DX: T81.89XA Other complications of procedures, not elsewhere classified, initial encounter (principal); F41.9 Anxiety disorder, unspecified; F31.9 Bipolar disorder, unspecified; F17.200 Nicotine dependence, unspecified, uncomplicated; J45.909 Unspecified asthma, uncomplicated; I10 Essential (primary) hypertension; Z79.51 Long term (current) use of inhaled steroids; Z79.899 Other long term (current) drug therapy; Z86.14 Personal history of Methicillin resistant Staphylococcus aureus infection; Z88.8 Allergy status to other drugs, medicaments and biological substances; Y83.9 Surgical procedure, unspecified as the cause of abnormal reaction of the patient, or of later complication, without mention of misadventure at the time of the procedure
CPT/HCPCS: 99283; 96365; 96375 ×3; J2270; J2405; J0878; J1885; S0119